=== PATIENT | female | born 1955 | race Caucasian/White ===

== ENCOUNTER 2019-02-17 14:43 | Inpatient (IN) | payer OTHER, MEDICARE ==
[~2019-02-17] VITALS: Ht 157.5 cm; Wt 66.2 kg
[~2019-02-17 14:43] MED LIST: ANTIDEPRESSANT; ARMOUR THYROID15 M1; BENTYL10 MG PO; CELEXA40 MG; CHOLESTEROL MED; COLESTID1 GM; CREON DR 24,001 EACH PO; DEPO-ESTRAD5 MG/1 ML IM; ENTOCORT EC3 MG PO; FOLIC ACID1 MG PO; KEFLEX500 MG PO; LEVOTHYROXINE; LISINOPRIL10 MG; LISINOPRIL5 MG PO; LOMOTIL TABLET1 EACH PO; NAPROSYN375 MG PO; NEXIUM40 MG; NORCO 5-325 TA1 EACH PO; OMEPRAZOLE20 MG; ONDANSETRON HCL4 M2 PO; PERCOCET 5-3251 EACH PO; PHENERGAN 25 MG25 M1 PO; SEROQUEL 100 M100 MG; SEROQUEL 100 M100 MG PO; SYNTHROID100 MCG; SYNTHROID75 MCG PO; TRAMADOL 50 MG50 MG PO; VIIBRYD40 MG PO; VITAMIN B-1100 M1 PO; VITAMIN D 5050000 I1 PO; VITAMIN D35000 UNIT PO; ZOFRAN ODT4 MG SUBLING; [UNRECOGNIZED DRUG - REMARK]
[2019-02-17 14:51] VITALS: BP 138/95
[2019-02-17] MEDS ORDERED: EFFEXOR XR75 MG PO (14:57)
[2019-02-17] MEDS ORDERED: BUSPIRONE HCL10 MG PO (14:57)
[2019-02-17] MEDS ORDERED: ENTOCORT EC3 MG PO (14:58)
[2019-02-17] MEDS ORDERED: PROGESTERONE100 MG PO (14:59)
[2019-02-17] MEDS ORDERED: HORMONE PATCH TRANSDERM (14:59)
[2019-02-17] MEDS ORDERED: OMEPRAZOLE20 M1 PO (15:00)
[2019-02-17] MEDS ORDERED: OMEGA-31000 M1 PO (15:00)
[2019-02-17] MEDS ORDERED: BIOTIN1 MG PO (15:01)
[2019-02-17] MEDS ORDERED: MELATONIN1 MG PO (15:01)
[2019-02-17 16:48] LABS: ABSOLUTE BASOPHILS 0.1 thou/uL (0.0-0.2); ABSOLUTE EOSINOPHILS 0.2 thou/uL (0.0-0.7); ABSOLUTE LYMPHOCYTES 2.3 thou/uL (0.8-5.3); ABSOLUTE NEUTROPHILS 9.2 thou/uL (1.6-8.1); EOSINOPHILS 1.8 %; HEMATOCRIT 40.6 % (37.0-47.0); HEMOGLOBIN 14.2 gm/dL (12.0-15.0); LYMPHOCYTES 18.3 %; MCH 33.4 pg (26.0-34.0); MCHC 34.9 g/dL (28.0-37.0); MCV 95.6 fL (80.0-100.0); MONOCYTES 7.4 %; NUCLEATED RBCS 0 /100WBC; PLATELET COUNT* 392 thou/uL (150-400); POLYS 71.5 %; RBC 4.25 mil/uL (4.20-5.00); RDW-CV 12.6 % (10.5-14.5); WBC 12.8 thou/uL (4.0-11.0)
[2019-02-17 16:53] LABS: ANION GAP 14 mmol/L (7-16); BUN 8 mg/dL (7-18); CALCIUM 7.4 mg/dL (8.5-10.1); CHLORIDE 104 mmol/L (98-107); CO2 21 mmol/L (21-32); CREATININE 0.9 mg/dL (0.6-1.3); GLUCOSE 106 mg/dL (70-99); SODIUM 139 mmol/L (136-145)
[2019-02-17 17:00] LABS: POTASSIUM 2.5 mmol/L (3.5-5.1)
[2019-02-17 17:03] LABS: ALBUMIN 2.4 g/dL (3.4-5.0); ALKALINE PHOSPHATASE 114 U/L (46-116); SGOT 25 U/L (15-37); SGPT 24 U/L (30-65); TOTAL BILIRUBIN 0.7 mg/dL (<0.1-1.0); TOTAL PROTEIN 5.9 g/dL (6.4-8.2); TROPONIN-I LEVEL <0.06 ng/mL (<0.06)
[2019-02-17 19:51] VITALS: BP 154/81
[2019-02-17 20:30] VITALS: BP 148/70
[2019-02-18] VITALS: BP 165/76
--- NOTE | 2019-02-18 01:09 | NUR ---
PT RECIEVED FROM ED IN ROOM 205. ALERT AND ORIENTED X4. CALL LIGHT WITHIN REACH AND BED IN LOW POSITION. PT IS VERY ANXIOUS. PT'S POTASSIUM AND MAGNESIUM ARE CRITICAL, PT STATED IV POTASSIUM AND MAGNESIUM SOL, GOT AN ORDER FOR IV FLUIDS TO TRANSFUSE WITH THE ELECTROLYTES, RAN AT 20ML/HR, STILL COMPLAINS OF BURNING. REFUSED IV POTASSIUM, MAGNESIUM RUNNING AT 10ML/HR. PO POTASSIUM AND MAGNESIUM GIVEN.
[2019-02-18 04:00] VITALS: BP 140/77
[2019-02-18 05:16] LABS: ANION GAP 11 mmol/L (7-16); BUN 5 mg/dL (7-18); CALCIUM 7.2 mg/dL (8.5-10.1); CHLORIDE 108 mmol/L (98-107); CO2 22 mmol/L (21-32); CREATININE 0.8 mg/dL (0.6-1.3); GLUCOSE 89 mg/dL (70-99); MAGNESIUM 1.6 mg/dL (1.8-2.4); SODIUM 141 mmol/L (136-145); TROPONIN-I LEVEL <0.06 ng/mL (<0.06)
[2019-02-18 05:39] LABS: POTASSIUM 2.7 mmol/L (3.5-5.1)
[2019-02-18 07:30] VITALS: BP 171/76
--- NOTE | 2019-02-18 14:19 | NUR ---
ASSUMED PT CARE AT 0800, AOX4, UP WITH ASSIST, O2 SAT 90'S RA. TRACING SR 1ST DEGREE ON TELE. PT FOR ELECTROLYTE REPLACEMENT. PT POTASSIUM IS LOW, REPORTED NOT TOLERATING IV POTASSIUM FROM NIGHT. TRIED ORAL K, COMPLAINS OF DIFFICULTY SWALLOWING, HAVE NAUSEA AND VOMITING, BUT PT ABLE TO TAKE SOME OF IT TWICE.PT FOR CT NECK. PT IV OUT, DOCTOR AND PICKER OPERATOR AWARE. UNABLE TO OBTAIN TODAY PT VERY ANXIOUS, AND PT REFUSING. SHES OK TO HAVE PICC LINE, PLAN TO PUT TOMORROW. PT REPORT DARK STOOL. FOR OCCULT BLOOD, CULTURE STOOL, FECAL RBC. VSS, AM ASSESSMENT CHARTED, HOURLY ROUNDING, WILL CONITINUE TO MONITOR.
[2019-02-18 16:00] VITALS: BP 146/78
--- NOTE | 2019-02-18 16:23 | NUR ---
ASSUMED CARE OF PATIENT AT 1500. PATIENT IS RESTING CALL LIGHT IS IN REACH. NO IV ACCESS. TELE SHOWS SR WITH 1DAVB. WILL CONTINUE TO MONITOR.
[2019-02-18 20:00] VITALS: BP 168/89
[2019-02-19] VITALS: BP 140/71
[2019-02-19 04:00] VITALS: BP 136/63
--- NOTE | 2019-02-19 07:42 | NUR ---
PT CARE ASSUMED AT 1930. SAT MAINTAINED IN [facility]. ALERT AND ORIENTED X4. CALL LIGHT WITHIN REACH AND BED IN LOW POSITION. PT IS ANXIOUS. DENIES PAIN AND SOB. HAD AN EPISODE OF DIARRHEA PER PT. HOURLY ROUNDING DONE FOR PT SAFETY.
[2019-02-19 08:00] VITALS: BP 140/64
[2019-02-19 12:00] VITALS: BP 146/79
[2019-02-19 16:00] VITALS: BP 134/71
--- NOTE | 2019-02-19 16:38 | NUR ---
ASSUMED PT CARE AT 0800, AOX4, UP SBA, O2 SAT 90'S RA. TRACING SR ON TELE. PT COMPLAINS OF SORE THROAT. PT HAD CT NECK TODAY. PT STILL IV OUT. PT LAST BM 02/18/19. PT FOR STOOL CULTURE. PT FOR GI CONSULT. VSS, AM ASSESSMENT CHARTED, HOURLY ROUNDING , CALL LIGHT WITHIN REACH, WILL CONTINUE TO MONITOR.
--- NOTE | 2019-02-19 16:51 | EKG ---
[place] [address] ELECTROCARDIOGRAM REPORT Name: ANALY VOGT Room: [address] ADM IN .R.#: [id number] Admission: 02/17/19 Attend Phys: Ángela Logan Discharge: Date of : 53 Report #: [id number] THIS REPORT FOR: //name// [facility] ED Test Date: 2019-02-17 Test Time: 16:55:10 Pat Name: ANALY VOGT Department: Room: [facility] Gender: F K 9 Handler/ Deputy: : 1955 Requested By: Deepali Allen Order Number: [id number] MD: Horacio Vallejo Measurements Intervals [place] Rate: 107 P: 25 [place]: 150 QRS: 60 QRSD: 85 T: 253 QT: 358 QTc: 478 Interpretive Statements Sinus tachycardia Nonspecific repol abnormality, diffuse leads Compared to ECG 03/28/2014 23:55:40 Early repolarization now present Sinus rhythm no longer present Electronically Signed On 02-19-2019 16:51:33 CDT by Horacio Vallejo [email or web address] <ELECTRONICALLY SIGNED> By: Horacio Vallejo MD, FACC 02/19/19 1651 [id number] Horacio Vallejo MD, [facility] /EPI
[2019-02-19 20:30] VITALS: BP 153/87
[2019-02-20] VITALS: BP 128/66
[2019-02-20 04:00] VITALS: BP 148/78
--- NOTE | 2019-02-20 06:50 | NUR ---
VSS. SEE MAR. SEE CHARTING. PROGRESSING TOWARDS GOALS. HOURLY ROUNDING FOR SAFETY.
[2019-02-20 07:30] VITALS: BP 137/64
--- NOTE | 2019-02-20 10:20 | NUR ---
Pt is A&O. Resides at home with her . Independent. No DME. No hx of HH or SNF. Goal is home. Spoke with , possible dc to home later today. GI consult pending.
[2019-02-20 12:00] VITALS: BP 149/91
[2019-02-20 13:14] VITALS: BP 149/91
--- NOTE | 2019-02-20 14:23 | NUR ---
RECEIVED DISCHARGE ORDERS PER DR PLEITEZ. GI OK WITH DC TODAY AND PATIENT CAN F/U OUTPATIENT FOR COLONOSCOPY. PATIENT AGREEABLE WITH THIS PLAN AND DOES NOT WANT TO STAY INPATIENT FOR THE SCOPE. EDUCATED THE PATIENT AND HER SPOUSE ON F/U APPOINTMENTS WITH GI AND HER PRIMARY PHYSICIAN. IV DISCONTINUED. SUPERVISOR QUALITY CONTROL REMOVED AND REURNED TO NURSE'S DESK. ALL HER BELONGINGS PACKED AND LEAVING WITH THE PATIENT. SHE DENIES ANY QUESTIONS/CONCERNS AT TIME OF DISCHARGE. SHE IS LEAVING VIA AMBULATORY PER PATIENT'S REQUEST ACCOMPANIED BY NURSING STAFF AND THE PATIENTS SPOUSE FOR TRANSPORT.
--- NOTE | 2019-02-23 19:17 | CON ---
[address] [address] CONSULTATION Name: ANALY VOGT Room: [address] IN M.R.#: [id number] Admission: 02/17/19 Attend Phys: Ángela Logan Discharge: 02/20/19 Date of : 53 Report #: [id number] THIS REPORT FOR: //name// CC: JAZMINE physician/PCP Palmer Barth DICTATED BY: Cyndee Caicedo [facility] DATE OF SERVICE: 02/20/2019 Please note at the time of this dictation, the patient was seen and physically examined by myself. REASON FOR CONSULTATION: Nausea and vomiting, which at the time of consultation is resolved. HISTORY OF PRESENT ILLNESS: This is a 63-year-old female who presented to the Emergency Room with noticing a poor appetite, chronic nausea and vomiting, which had been ongoing for the last few weeks. In talking with the patient, she has been taking Entocort 9 mg or 3 tablets daily for an extended period of time. Approximately 6 weeks ago, she quit taking those abruptly and she states at that time, her bowels were normal in consistency. Then, she started experiencing nausea and vomiting and having diarrhea again. She states she did restart taking them again, but it did not help her symptoms, prompting her to eventually come in to be seen. She has not been on them since she has gotten here in the hospital, her nausea and vomiting has resolved. Her appetite is better; however, she is now having the diarrhea and she does not want to go back on those medications, the Entocort at this time. She is wanting to go home today and is willing to do an outpatient colonoscopy. The patient was scheduled for an outpatient colonoscopy earlier this year, but she canceled and never rescheduled. The patient did have a colonoscopy, EGD with us back in 2013 for her history of chronic pancreatitis, which did show some lymphocytic colitis at that time and she was placed on Entocort and apparently she never followed up with us and her PCP has then given that to her ever since that time. ALLERGIES: INCLUDE HYDROMORPHONE, HYDROCODONE, LATEX AND LORAZEPAM. MEDICATIONS: From home include; Synthroid, Effexor, buspirone, had been on Entocort, progesterone, transdermal hormone patch, omeprazole, omega 3, melatonin, Seroquel, and vitamin D. PAST MEDICAL HISTORY: Hypertension. She had a flesh eating bacteria Pyoderma gangrenosum, depression, hypothyroidism, chronic pancreatitis, and lymphocytic colitis. PAST SURGICAL HISTORY: Total hysterectomy, appendectomy, [place] [address] CONSULTATION Name: ANALY VOGT Room: [address] M.R.#: [id number] Admission: 02/17/19 Attend Phys: Ángela Logan Discharge: 02/20/19 Date of : 53 Report #: [id number] breast implant. FAMILY HISTORY: Negative for any GI or female cancers. SOCIAL HISTORY: Current smoker, a pack per day. Past use of alcohol in which she used to drink a small bottle of whiskey every night and has not done so since prior to 2013 and denies any illegal drug use. REVIEW OF SYSTEMS: Twelve-point review of systems is essentially negative except what is mentioned in the HPI. PHYSICAL EXAMINATION: VITAL SIGNS: Temperature 36.6, pulse 69, respirations 16, blood pressure 137/64. HEART: Regular rate and rhythm. LUNGS: Clear. ABDOMEN: Soft, positive bowel sounds in all 4 quadrants with no masses or tenderness noted. LABORATORY DATA: Hemoglobin is 14.2, white count is 12.8, platelets 392. GFR is 72. LFTs are normal. ESR is 8. CT of the abdomen and pelvis negative showing some diverticulosis. Chest x-ray normal. CT of the neck. No abnormality noted. IMPRESSION: 1. Nausea and vomiting, resolved. 2. Diarrhea. History of lymphocytic colitis, had been on Entocort. 3. Chronic pancreatitis secondary to alcohol abuse. 4. Hypothyroidism. PLAN: The patient wants to go home today and will schedule an outpatient colonoscopy at her convenience. Thank you for allowing us to participate in this patient's care. Please do not hesitate to call with any questions in regard to this consult. Agree with assessment and plan by Cyndee Caicedo. <ELECTRONICALLY SIGNED> By: Ramana Elmore MD 02/23/19 [id number] [id number] Elmore MD /nt
== END 2019-02-20 14:34 | disposition home or self-care (01) | DRG 391 ==
LOC: M.ERS 14:43 → M.TBA-ER 17:20 → M.2W 17:20
PROVIDERS: Nurse Practitioner; ADMIT Internal Medicine
DX: A08.4 Viral intestinal infection, unspecified (principal); E43 Unspecified severe protein-calorie malnutrition; K86.0 Alcohol-induced chronic pancreatitis; R65.10 Systemic inflammatory response syndrome (SIRS) of non-infectious origin without acute organ dysfunction; L88 Pyoderma gangrenosum; E83.42 Hypomagnesemia; E87.6 Hypokalemia; I10 Essential (primary) hypertension; F32.9 Major depressive disorder, single episode, unspecified; E03.9 Hypothyroidism, unspecified; F17.210 Nicotine dependence, cigarettes, uncomplicated; F10.10 Alcohol abuse, uncomplicated; F41.9 Anxiety disorder, unspecified; Z68.26 Body mass index [BMI] 26.0-26.9, adult; K52.839 Microscopic colitis, unspecified; Z88.6 Allergy status to analgesic agent; Z88.8 Allergy status to other drugs, medicaments and biological substances; Z91.040 Latex allergy status; Z90.710 Acquired absence of both cervix and uterus; Z90.49 Acquired absence of other specified parts of digestive tract

== ENCOUNTER 2019-03-10 13:06 | Emergency (ER) | payer OTHER, MEDICARE ==
[~2019-03-10] VITALS: Ht 157.5 cm; Wt 55.8 kg
[~2019-03-10 13:06] MED LIST changes: +BIOTIN1 MG PO; +BUSPIRONE HCL10 MG PO; +EFFEXOR XR75 MG PO; +HORMONE PATCH TRANSDERM; +MELATONIN1 MG PO; +OMEGA-31000 M1 PO; +OMEPRAZOLE20 M1 PO; +PROGESTERONE100 MG PO
[2019-03-10 14:09] LABS: ABSOLUTE BASOPHILS 0.1 thou/uL (0.0-0.2); ABSOLUTE EOSINOPHILS 0.1 thou/uL (0.0-0.7); ABSOLUTE LYMPHOCYTES 2.3 thou/uL (0.8-5.3); ABSOLUTE MONOCYTES 1.1 thou/uL (0.0-1.2); ABSOLUTE NEUTROPHILS 10.5 thou/uL (1.6-8.1); BASOPHILS 0.9 %; EOSINOPHILS 0.7 %; HEMATOCRIT 45.5 % (37.0-47.0); HEMOGLOBIN 15.8 gm/dL (12.0-15.0); LYMPHOCYTES 16.3 %; MCH 33.3 pg (26.0-34.0); MCHC 34.8 g/dL (28.0-37.0); MCV 95.6 fL (80.0-100.0); MONOCYTES 7.6 %; MPV 8.3 fl. (7.2-11.1); NUCLEATED RBCS 0 /100WBC; PLATELET COUNT* 461 thou/uL (150-400); POLYS 74.5 %; RBC 4.76 mil/uL (4.20-5.00); RDW-CV 12.9 % (10.5-14.5); WBC 14.1 thou/uL (4.0-11.0)
[2019-03-10 14:18] LABS: CALCIUM 9.2 mg/dL (8.5-10.1); CREATININE 1.1 mg/dL (0.6-1.3)
[2019-03-10 14:20] LABS: POTASSIUM 2.7 mmol/L (3.5-5.1)
[2019-03-10 14:22] LABS: ALBUMIN 2.7 g/dL (3.4-5.0); TOTAL BILIRUBIN 0.7 mg/dL (<0.1-1.0); TOTAL PROTEIN 6.9 g/dL (6.4-8.2)
[2019-03-10] MEDS ORDERED: POTASSIUM20 PO (15:33)
[2019-03-10] MEDS ORDERED: MAGNESIUM400 M1 PO (15:33)
[2019-03-10] MEDS ORDERED: ZOFRAN ODT4 MG DISSOLVE (15:33)
[2019-03-10 15:49] LABS: URINE BLOOD NEGATIVE (Negative); URINE CLARITY CLEAR; URINE COLOR YELLOW; URINE GLUCOSE-RANDOM NEGATIVE (Negative); URINE LEUKOCYTES-REFLEX NEGATIVE (Negative); URINE NITRITE-REFLEX NEGATIVE (Negative); URINE PROTEIN NEGATIVE (Negative); URINE UROBILINOGEN 0.2 E.U./dl (0.2-1.0)
[2019-03-10 15:56] LABS: ICTOTEST (BILI CONFIRMATORY) Negative (Negative); URINE BILIRUBIN 1+ (Negative); URINE KETONES 3+ (Negative)
[2019-03-10 16:47] VITALS: BP 177/93
--- NOTE | 2019-03-10 18:14 | EKG ---
[place] [address] ELECTROCARDIOGRAM REPORT Name: ANALY VOGT Room: [facility]#: [id number] Admission: 03/10/19 Attend Phys: Discharge: 03/10/19 Date of : 53 Report #: [id number] THIS REPORT FOR: //name// [facility] ED Test Date: 2019-03-10 Test Time: 13:34:51 Pat Name: ANALY VOGT Department: Room: Gender: F Printing Sales Representative: : 1955 Requested By: Srinivasa Amado Order Number: [id number] MD: Horacio Vallejo Measurements Intervals [place] Rate: 91 P: 74 [place]: 137 QRS: 78 QRSD: 98 T: -75 QT: 379 QTc: 467 Interpretive Statements Sinus rhythm Nonspecific repol abnormality, diffuse leads, consider ischemia Compared to ECG 02/17/2019 16:55:10 Sinus tachycardia no longer present Electronically Signed On 03-10-2019 18:14:04 CDT by Horacio Vallejo [email or web address] <ELECTRONICALLY SIGNED> By: Horacio Vallejo MD, FACC 03/10/19 1814 1334 33 Horacio Vallejo MD, FACC /EPI
== END 2019-03-10 16:50 | disposition home or self-care (01) ==
LOC: M.ERS 13:06
PROVIDERS: Emergency Medicine Emergency Medical Services
DX: E86.0 Dehydration (principal); E87.6 Hypokalemia; I10 Essential (primary) hypertension; F32.9 Major depressive disorder, single episode, unspecified; E03.9 Hypothyroidism, unspecified; F17.210 Nicotine dependence, cigarettes, uncomplicated; Z91.040 Latex allergy status; Z88.5 Allergy status to narcotic agent; Z88.8 Allergy status to other drugs, medicaments and biological substances; Z90.710 Acquired absence of both cervix and uterus; Z90.49 Acquired absence of other specified parts of digestive tract